=== PATIENT | male | born 1980 | race Caucasian/White ===

== ENCOUNTER 2023-09-04 16:54 | Emergency (ER) | payer SELFPAY | END 2023-09-04 17:19 | LOC: MW.ED 16:54 | DX: Z02.89 Encounter for other administrative examinations (principal) | CPT/HCPCS: 99282; 99283 ==

== ENCOUNTER 2024-02-23 19:56 | Inpatient (IN) | payer MEDICAID ==
[2024-02-23] MEDS ORDERED: Sodium Chloride 0.9% 20 ML SDV IV PRN (20:10)
[2024-02-23] MEDS: Sodium Chloride 0.9% 1,000 ML IV ONE (20:17)
[2024-02-23] MEDS: Sodium Chloride 0.9% 2.5 ML Syringe FLUSH PRN (20:18)
[2024-02-23] MEDS: Diphtheria,Pertussis(Acell),Tetanus Vaccine 0.5 ML Syringe IM ONE (20:18)
[2024-02-23] MEDS: Sodium Chloride 0.9% 10 ML Syringe FLUSH PRN (20:18)
[2024-02-23 20:26] LABS: HEMATOCRIT 42.7 % (42.0-52.0); HEMOGLOBIN 14.7 g/dL (14.0-18.0); MEAN CORPUSCULAR HEMOGLOBIN 31.1 pg (28.0-32.0); MEAN CORPUSCULAR HGB CONC 34.4 g/dL (32.0-36.0); MEAN CORPUSCULAR VOLUME 90.3 fL (83.0-99.0); MEAN PLATELET VOLUME 9.4 fL (9.4-12.4); PLATELET COUNT,PLT 247 K/uL (150-400); RED BLOOD CELL COUNT 4.73 M/uL (4.52-5.90)
[2024-02-23 20:49] LABS: LYMPHOCYTES ABSOLUTE MAN 1.75 K/uL (1.00-4.80); LYMPHOCYTES PERCENT MAN 9 % (24-44); MONOCYTES ABSOLUTE MAN 1.55 K/uL (0.00-0.80); MONOCYTES PERCENT MAN 8 % (0-8); SEG NEUTROPHILS PERCENT MAN 83 % (41-71)
[2024-02-23 20:50] LABS: A/G RATIO 0.8 (0.9-1.6); ALBUMIN 3.2 g/dL (3.4-5.0); BILIRUBIN TOTAL 0.4 mg/dL (0.2-1.0); CALCIUM 9.6 mg/dL (8.5-10.1); CARBON DIOXIDE,CO2 27.9 mmol/L (21.0-32.0); CREATININE 1.2 mg/dL (0.8-1.3); EST CRCL DRUG DOSING (CG) 84.54 mL/min; POTASSIUM,K 3.7 mmol/L (3.5-5.1); PROTEIN TOTAL,TP 7.4 g/dL (6.4-8.2)
[2024-02-23 21:02] LABS: C-REACTIVE PROTEIN 27.26 mg/dL (<0.3)
[2024-02-23] MEDS: Iopamidol 755 MG/ML 500 ML Multipack Bottle IVPUSH ONE (21:43)
[2024-02-23] MEDS: cefTRIAXone 2 GM in Sodium Chloride 0.9% 50 ML IV ONE (22:13)
[2024-02-23] MEDS: LORazepam 2 MG/ML SDV IVPUSH ONE (23:02)
[2024-02-23] MEDS: Ondansetron 4 MG/2 ML SDV IVPUSH ONE (23:02)
[2024-02-23] MEDS: Doxycycline 100 MG in Sodium Chloride 0.9% 100 ML IV SCH (23:05)
[2024-02-23] MEDS ORDERED: Docusate Sodium 100 MG Cap PO PRN (23:18)
[2024-02-23] MEDS ORDERED: Albuterol/Ipratropium 3.0-0.5 MG/3 ML Neb Soln NEB PRN (23:18)
[2024-02-23] MEDS ORDERED: Acetaminophen 325 MG Tab PO PRN (23:18)
[2024-02-23] MEDS ORDERED: Ondansetron 4 MG/2 ML SDV IVPUSH PRN (23:18)
[2024-02-23] MEDS ORDERED: Melatonin 3 MG Tab PO PRN (23:18)
[2024-02-23] MEDS ORDERED: Acetaminophen 650 MG Supp RECTAL PRN (23:18)
[2024-02-23] MEDS ORDERED: Sodium Chloride 0.9% 1,000 ML IV SCH (23:30)
[2024-02-24] MEDS: oxyCODONE 5 MG Tab PO PRN (00:36)
[2024-02-24] MEDS: Sodium Chloride 0.9% 1,000 ML IV ONE (00:55)
[2024-02-24] MEDS: VANCOmycin 1.5 GM/300 ML 300 ML IV ONE ×2 (02:15→03:05)
[2024-02-24] MEDS: Piperacillin/Tazobactam 4.5 GM in Sodium Chloride 0.9% 100 ML IV SCH ×2 (03:05→04:28)
[2024-02-24] MEDS: Sodium Chloride 0.9% 1,000 ML IV SCH (04:30)
[2024-02-24 06:11] LABS: BASOPHILS ABSOLUTE AUTO 0.04 K/uL (0.00-0.20); BASOPHILS PERCENT AUTO 0.2 % (0.0-1.0); EOSINOPHILS ABSOLUTE AUTO 0.12 K/uL (0.00-0.45); EOSINOPHILS PERCENT AUTO 0.7 % (0.0-6.0); HEMATOCRIT 38.4 % (42.0-52.0); HEMOGLOBIN 12.9 g/dL (14.0-18.0); IMMATURE GRAN PERCENT AUTO 1.1 % (0.0-0.4); LYMPHOCYTES ABSOLUTE AUTO 1.01 K/uL (1.00-4.80); LYMPHOCYTES PERCENT AUTO 5.7 % (24.0-44.0); MEAN CORPUSCULAR HEMOGLOBIN 30.6 pg (28.0-32.0); MEAN CORPUSCULAR HGB CONC 33.6 g/dL (32.0-36.0); MEAN PLATELET VOLUME 9.9 fL (9.4-12.4); MONOCYTES ABSOLUTE AUTO 1.33 K/uL (0.00-0.80); MONOCYTES PERCENT AUTO 7.5 % (0.0-8.0); NEUTROPHILS ABSOLUTE AUTO 15.03 K/uL (1.80-7.70); NEUTROPHILS PERCENT AUTO 84.8 % (41.0-71.0); PLATELET COUNT,PLT 225 K/uL (150-400); RED BLOOD CELL COUNT 4.22 M/uL (4.52-5.90); WHITE BLOOD CELL COUNT,WBC 17.73 K/uL (3.9-11.3)
[2024-02-24 06:37] LABS: A/G RATIO 0.7 (0.9-1.6); ALBUMIN 2.6 g/dL (3.4-5.0); BILIRUBIN TOTAL 0.5 mg/dL (0.2-1.0); CALCIUM 8.3 mg/dL (8.5-10.1); CARBON DIOXIDE,CO2 25.9 mmol/L (21.0-32.0); CREATININE 0.9 mg/dL (0.8-1.3); EST CRCL DRUG DOSING (CG) 112.72 mL/min; MAGNESIUM 1.7 mg/dL (1.8-2.4); POTASSIUM,K 3.5 mmol/L (3.5-5.1); PROTEIN TOTAL,TP 6.2 g/dL (6.4-8.2)
[2024-02-24] MEDS ORDERED: fentaNYL 250 MCG/5 ML SDV ONE (07:48)
[2024-02-24] MEDS ORDERED: Propofol 200 MG/20 ML SDV ONE (07:48)
[2024-02-24] MEDS ORDERED: Midazolam 1 MG/ML 2 ML SDV ONE (07:55)
[2024-02-24] MEDS ORDERED: Water For Injection, Sterile 20 ML ONE (07:56)
[2024-02-24] MEDS ORDERED: dexmedeTOMIDine HCl 200 MCG/2 ML SDV ONE (07:56)
[2024-02-24] MEDS ORDERED: Bupivacaine 0.5% 30 ML SDV ONE (08:08)
[2024-02-24] MEDS ORDERED: Ketamine HCL/NACL, ISO-OSM 50 MG/5 ML Syringe ONE (08:50)
[2024-02-24] MEDS ORDERED: Dexamethasone 4 MG/ML 5 ML MDV ONE (09:08)
[2024-02-24] MEDS ORDERED: Ondansetron 4 MG/2 ML SDV ONE (09:08)
[2024-02-24] MEDS ORDERED: HYDROmorphone 2 MG/ML Syringe ONE ×2 (09:14→10:07)
[2024-02-24] MEDS ORDERED: Magnesium Sulfate (4.06 MEQ/ML) 5 GM/10 ML SDV ONE (09:17)
[2024-02-24] MEDS: cefTRIAXone 2 GM in Sodium Chloride 0.9% 50 ML IV ONE (09:37)
[2024-02-24] MEDS ORDERED: Ketorolac 30 MG/ML SDV IVPUSH ONE (10:07)
[2024-02-24 10:36] LABS: HEMOGLOBIN A1C 5.9 %
[2024-02-24] MEDS: Polyethylene Glycol 3350 Powder 17 GM Packet PO SCH (11:50)
[2024-02-24] MEDS: VANCOmycin 1.5 GM/300 ML 300 ML IV SCH (15:31)
== END 2024-02-24 14:40 | disposition left against medical advice (07) | DRG 580 ==
LOC: MW.ED 19:56 → MW.MS 23:18
PROVIDERS: ADMIT Family Medicine; ATTEND Family Medicine
PROC: 0LQS0ZZ Repair Right Ankle Tendon, Open Approach (ICD-10-PCS; 2024-02-24)
PROC: 0LBS0ZZ Excision of Right Ankle Tendon, Open Approach (ICD-10-PCS; principal; 2024-02-24 09:00)
DX: L03.115 Cellulitis of right lower limb (principal); S86.021A Laceration of right Achilles tendon, initial encounter; M65.071 Abscess of tendon sheath, right ankle and foot; F32.A Depression, unspecified; F17.210 Nicotine dependence, cigarettes, uncomplicated; H54.3 Unqualified visual loss, both eyes
CPT/HCPCS: 00938; 01472; 36415; 73701-26-RT; 73701-RT; 80053; 80202; 82947; 83036; 83605; 83735; 85025; 85652; 86140; 87040; 87070; 87075; 87077; 87186; 87205; 93005; 93010; 93971-26-RT; 93971-RT; 96361; 96365; 96375; 99222; 99238; 99284-25; 99285; A9270-GY; J0131; J0665; J0696; J1100; J1170; J1885; J2060; J2250; J2405; J2543; J2704; J3010; J3372; J3475; J3490; J7030; Q9967

== ENCOUNTER 2024-04-10 12:56 | Inpatient (IN) | payer MEDICAID ==
[2024-04-10] MEDS: Ondansetron 4 MG/2 ML SDV IVPUSH STA (14:55)
[2024-04-10] MEDS: Morphine 4 MG/ML Syringe IVPUSH STA (14:55)
[2024-04-10] MEDS: cefTRIAXone 2 GM in Sodium Chloride 0.9% 50 ML IV STA (14:55)
[2024-04-10 15:05] LABS: BASOPHILS ABSOLUTE AUTO 0.07 K/uL (0.00-0.20); BASOPHILS PERCENT AUTO 0.7 % (0.0-1.0); EOSINOPHILS ABSOLUTE AUTO 0.47 K/uL (0.00-0.45); EOSINOPHILS PERCENT AUTO 4.6 % (0.0-6.0); HEMATOCRIT 41.6 % (42.0-52.0); HEMOGLOBIN 14.2 g/dL (14.0-18.0); IMMATURE GRAN ABSOLUTE AUTO 0.28 K/uL (0.00-0.05); IMMATURE GRAN PERCENT AUTO 2.7 % (0.0-0.4); LYMPHOCYTES ABSOLUTE AUTO 2.25 K/uL (1.00-4.80); LYMPHOCYTES PERCENT AUTO 22.1 % (24.0-44.0); MEAN CORPUSCULAR HEMOGLOBIN 30.4 pg (28.0-32.0); MEAN CORPUSCULAR HGB CONC 34.1 g/dL (32.0-36.0); MEAN CORPUSCULAR VOLUME 89.1 fL (83.0-99.0); MEAN PLATELET VOLUME 9.3 fL (9.4-12.4); MONOCYTES ABSOLUTE AUTO 1.12 K/uL (0.00-0.80); NEUTROPHILS PERCENT AUTO 58.9 % (41.0-71.0); PLATELET COUNT,PLT 404 K/uL (150-400); RED BLOOD CELL COUNT 4.67 M/uL (4.52-5.90); WHITE BLOOD CELL COUNT,WBC 10.19 K/uL (3.9-11.3)
[2024-04-10 15:31] LABS: A/G RATIO 0.7 (0.9-1.6); ALBUMIN 3.3 g/dL (3.4-5.0); BILIRUBIN TOTAL 0.3 mg/dL (0.2-1.0); CALCIUM 9.1 mg/dL (8.5-10.1); CARBON DIOXIDE,CO2 29.1 mmol/L (21.0-32.0); EST CRCL DRUG DOSING (CG) 100.4 mL/min; POTASSIUM,K 3.6 mmol/L (3.5-5.1); PROTEIN TOTAL,TP 8.3 g/dL (6.4-8.2)
[2024-04-10] MEDS: VANCOmycin 1.75 GM/350 ML 1.75 GM in Premix Bag 1 BAG IV ONE (15:41)
[2024-04-10] MEDS: Iopamidol 755 MG/ML 500 ML Multipack Bottle IVPUSH STA (16:44)
[2024-04-10] MEDS ORDERED: Naloxone 0.4 MG/ML SDV IVPUSH PRN (18:19)
[2024-04-10 18:35] LABS: LACTIC ACID 0.7 mmol/L (0.4-2.0)
[2024-04-10] MEDS: Nicotine 14 MG/24 Hr Patch TRDERM SCH (21:32)
[2024-04-10] MEDS: Morphine 2 MG/ML SYRINGE IVPUSH PRN (21:32)
[2024-04-11 00:13] LABS: APPEARANCE,URINE CLEAR; BILIRUBIN,URINE NEGATIVE (NEGATIVE); COLOR,URINE YELLOW; GLUCOSE,URINE NEGATIVE (NEGATIVE); KETONES,URINE NEGATIVE (NEGATIVE); LEUKOCYTE ESTERASE,URINE NEGATIVE (NEGATIVE); NITRITE,URINE NEGATIVE (NEGATIVE); OCCULT BLOOD,URINE NEGATIVE (NEGATIVE); PROTEIN,URINE NEGATIVE (NEGATIVE); UROBILINOGEN,URINE 0.2 EU/dL (<2.0)
[2024-04-11 06:45] LABS: BASOPHILS ABSOLUTE AUTO 0.06 K/uL (0.00-0.20); BASOPHILS PERCENT AUTO 0.7 % (0.0-1.0); EOSINOPHILS ABSOLUTE AUTO 0.43 K/uL (0.00-0.45); EOSINOPHILS PERCENT AUTO 5.3 % (0.0-6.0); HEMATOCRIT 38.8 % (42.0-52.0); HEMOGLOBIN 12.9 g/dL (14.0-18.0); IMMATURE GRAN ABSOLUTE AUTO 0.24 K/uL (0.00-0.05); LYMPHOCYTES ABSOLUTE AUTO 1.64 K/uL (1.00-4.80); LYMPHOCYTES PERCENT AUTO 20.4 % (24.0-44.0); MEAN CORPUSCULAR HEMOGLOBIN 30.1 pg (28.0-32.0); MEAN CORPUSCULAR HGB CONC 33.2 g/dL (32.0-36.0); MEAN CORPUSCULAR VOLUME 90.4 fL (83.0-99.0); MONOCYTES ABSOLUTE AUTO 0.77 K/uL (0.00-0.80); MONOCYTES PERCENT AUTO 9.6 % (0.0-8.0); NEUTROPHILS ABSOLUTE AUTO 4.91 K/uL (1.80-7.70); PLATELET COUNT,PLT 370 K/uL (150-400); RED BLOOD CELL COUNT 4.29 M/uL (4.52-5.90); WHITE BLOOD CELL COUNT,WBC 8.05 K/uL (3.9-11.3)
[2024-04-11 07:07] LABS: A/G RATIO 0.6 (0.9-1.6); ALBUMIN 2.7 g/dL (3.4-5.0); BILIRUBIN TOTAL 0.4 mg/dL (0.2-1.0); CALCIUM 8.7 mg/dL (8.5-10.1); CARBON DIOXIDE,CO2 29.2 mmol/L (21.0-32.0); CREATININE 1.1 mg/dL (0.8-1.3); EST CRCL DRUG DOSING (CG) 91.27 mL/min; MAGNESIUM 2.1 mg/dL (1.8-2.4); POTASSIUM,K 4.1 mmol/L (3.5-5.1); PROTEIN TOTAL,TP 6.9 g/dL (6.4-8.2)
[2024-04-11] MEDS ORDERED: Albuterol 0.083% 2.5 MG/3 ML Neb Soln NEB PRN (09:33)
[2024-04-11] MEDS ORDERED: droPERidol 5 MG/2 ML SDV IVPUSH PRN (09:33)
[2024-04-11] MEDS ORDERED: Naloxone 0.4 MG/ML SDV IVPUSH PRN (09:33)
[2024-04-11] MEDS ORDERED: Phenylephrine HCl In 0.9% NaCl 1 MG/10 ML Syringe IVPUSH PRN (09:33)
[2024-04-11] MEDS ORDERED: fentaNYL 50 MCG/ML SDV IVPUSH PRN (09:33)
[2024-04-11] MEDS ORDERED: Metoclopramide 10 MG/2 ML SDV IVPUSH PRN (09:33)
[2024-04-11] MEDS ORDERED: Ondansetron 4 MG/2 ML SDV IVPUSH PRN (09:33)
[2024-04-11] MEDS ORDERED: Morphine 2 MG/ML SYRINGE IVPUSH PRN (09:33)
[2024-04-11] MEDS ORDERED: propofoL 100 ML ONE (10:54)
[2024-04-11] MEDS ORDERED: Sugammadex Sodium 200 MG/2 ML VIAL IV ONE (11:04)
[2024-04-11] MEDS ORDERED: Lidocaine 2% 5 ML SDV ONE (11:04)
[2024-04-11] MEDS ORDERED: Rocuronium Bromide 50 MG/5 ML Syringe ONE ×2 (11:04→11:21)
[2024-04-11] MEDS ORDERED: fentaNYL 100 MCG/2 ML SDV ONE (11:04)
[2024-04-11] MEDS ORDERED: Morphine 10 MG/ML SDV ONE (11:04)
[2024-04-11] MEDS ORDERED: Ondansetron 4 MG/2 ML SDV ONE (11:04)
[2024-04-11] MEDS ORDERED: Ketorolac 30 MG/ML SDV ONE (11:04)
[2024-04-11] MEDS ORDERED: Bupivacaine 0.5% 30 ML SDV ONE (13:41)
[2024-04-11] MEDS ORDERED: HYDROmorphone 2 MG/ML Syringe ONE (14:57)
[2024-04-11] MEDS: HYDROmorphone 1 MG/ML Syringe IVPUSH PRN (15:17)
[2024-04-11] MEDS: cefTRIAXone 2 GM in Sodium Chloride 0.9% 50 ML IV SCH (15:51)
[2024-04-11] MEDS: Enoxaparin 40 MG/0.4 ML Syringe SUBCUT SCH (17:43)
[2024-04-11] MEDS: oxyCODONE 5 MG Tab PO PRN (19:37)
[2024-04-12 06:42] LABS: BASOPHILS ABSOLUTE AUTO 0.08 K/uL (0.00-0.20); EOSINOPHILS ABSOLUTE AUTO 0.54 K/uL (0.00-0.45); EOSINOPHILS PERCENT AUTO 6.6 % (0.0-6.0); HEMATOCRIT 36.4 % (42.0-52.0); HEMOGLOBIN 12.2 g/dL (14.0-18.0); IMMATURE GRAN ABSOLUTE AUTO 0.27 K/uL (0.00-0.05); IMMATURE GRAN PERCENT AUTO 3.3 % (0.0-0.4); LYMPHOCYTES PERCENT AUTO 20.9 % (24.0-44.0); MEAN CORPUSCULAR HEMOGLOBIN 30.2 pg (28.0-32.0); MEAN CORPUSCULAR HGB CONC 33.5 g/dL (32.0-36.0); MEAN CORPUSCULAR VOLUME 90.1 fL (83.0-99.0); MEAN PLATELET VOLUME 9.1 fL (9.4-12.4); MONOCYTES ABSOLUTE AUTO 0.66 K/uL (0.00-0.80); MONOCYTES PERCENT AUTO 8.1 % (0.0-8.0); NEUTROPHILS ABSOLUTE AUTO 4.88 K/uL (1.80-7.70); NEUTROPHILS PERCENT AUTO 60.1 % (41.0-71.0); PLATELET COUNT,PLT 390 K/uL (150-400); RED BLOOD CELL COUNT 4.04 M/uL (4.52-5.90); WHITE BLOOD CELL COUNT,WBC 8.13 K/uL (3.9-11.3)
[2024-04-12 07:05] LABS: A/G RATIO 0.6 (0.9-1.6); ALBUMIN 2.5 g/dL (3.4-5.0); BILIRUBIN TOTAL 0.2 mg/dL (0.2-1.0); CALCIUM 8.4 mg/dL (8.5-10.1); CARBON DIOXIDE,CO2 28.8 mmol/L (21.0-32.0); EST CRCL DRUG DOSING (CG) 100.4 mL/min; POTASSIUM,K 3.9 mmol/L (3.5-5.1); PROTEIN TOTAL,TP 6.6 g/dL (6.4-8.2)
[2024-04-13 07:18] LABS: BASOPHILS ABSOLUTE AUTO 0.07 K/uL (0.00-0.20); BASOPHILS PERCENT AUTO 0.9 % (0.0-1.0); EOSINOPHILS ABSOLUTE AUTO 0.43 K/uL (0.00-0.45); EOSINOPHILS PERCENT AUTO 5.5 % (0.0-6.0); HEMATOCRIT 37.8 % (42.0-52.0); HEMOGLOBIN 12.9 g/dL (14.0-18.0); IMMATURE GRAN ABSOLUTE AUTO 0.26 K/uL (0.00-0.05); IMMATURE GRAN PERCENT AUTO 3.4 % (0.0-0.4); LYMPHOCYTES ABSOLUTE AUTO 2.25 K/uL (1.00-4.80); MEAN CORPUSCULAR HEMOGLOBIN 30.1 pg (28.0-32.0); MEAN CORPUSCULAR HGB CONC 34.1 g/dL (32.0-36.0); MEAN CORPUSCULAR VOLUME 88.3 fL (83.0-99.0); MEAN PLATELET VOLUME 8.8 fL (9.4-12.4); MONOCYTES ABSOLUTE AUTO 0.56 K/uL (0.00-0.80); MONOCYTES PERCENT AUTO 7.2 % (0.0-8.0); NEUTROPHILS ABSOLUTE AUTO 4.19 K/uL (1.80-7.70); PLATELET COUNT,PLT 411 K/uL (150-400); RED BLOOD CELL COUNT 4.28 M/uL (4.52-5.90); WHITE BLOOD CELL COUNT,WBC 7.76 K/uL (3.9-11.3)
[2024-04-13 07:52] LABS: A/G RATIO 0.6 (0.9-1.6); ALBUMIN 2.7 g/dL (3.4-5.0); BILIRUBIN TOTAL 0.2 mg/dL (0.2-1.0); CALCIUM 8.7 mg/dL (8.5-10.1); CARBON DIOXIDE,CO2 28.4 mmol/L (21.0-32.0); CREATININE 0.9 mg/dL (0.8-1.3); EST CRCL DRUG DOSING (CG) 111.56 mL/min; POTASSIUM,K 3.5 mmol/L (3.5-5.1); PROTEIN TOTAL,TP 7.2 g/dL (6.4-8.2)
[2024-04-14 07:08] LABS: EOSINOPHILS PERCENT AUTO 4.1 % (0.0-6.0); HEMATOCRIT 40.3 % (42.0-52.0); HEMOGLOBIN 13.8 g/dL (14.0-18.0); IMMATURE GRAN ABSOLUTE AUTO 0.34 K/uL (0.00-0.05); IMMATURE GRAN PERCENT AUTO 3.5 % (0.0-0.4); LYMPHOCYTES ABSOLUTE AUTO 2.34 K/uL (1.00-4.80); LYMPHOCYTES PERCENT AUTO 24.1 % (24.0-44.0); MEAN CORPUSCULAR HEMOGLOBIN 30.1 pg (28.0-32.0); MEAN CORPUSCULAR HGB CONC 34.2 g/dL (32.0-36.0); MEAN PLATELET VOLUME 8.7 fL (9.4-12.4); MONOCYTES ABSOLUTE AUTO 0.69 K/uL (0.00-0.80); MONOCYTES PERCENT AUTO 7.1 % (0.0-8.0); NEUTROPHILS ABSOLUTE AUTO 5.82 K/uL (1.80-7.70); NEUTROPHILS PERCENT AUTO 60.2 % (41.0-71.0); PLATELET COUNT,PLT 435 K/uL (150-400); RED BLOOD CELL COUNT 4.58 M/uL (4.52-5.90); WHITE BLOOD CELL COUNT,WBC 9.69 K/uL (3.9-11.3)
[2024-04-14 07:31] LABS: CALCIUM 9.1 mg/dL (8.5-10.1); CARBON DIOXIDE,CO2 27.3 mmol/L (21.0-32.0); EST CRCL DRUG DOSING (CG) 100.4 mL/min; POTASSIUM,K 3.6 mmol/L (3.5-5.1)
[2024-04-14] MEDS ORDERED: Rocuronium Bromide 50 MG/5 ML Syringe IVPUSH ONE (09:47)
[2024-04-14] MEDS ORDERED: Sugammadex Sodium 200 MG/2 ML VIAL IV ONE (09:47)
[2024-04-14] MEDS ORDERED: Naloxone 0.4 MG/ML SDV IVPUSH PRN (10:20)
[2024-04-14] MEDS ORDERED: Metoclopramide 10 MG/2 ML SDV IVPUSH PRN (10:20)
[2024-04-14] MEDS ORDERED: Morphine 2 MG/ML SYRINGE IVPUSH PRN (10:20)
[2024-04-14] MEDS ORDERED: fentaNYL 50 MCG/ML SDV IVPUSH PRN (10:20)
[2024-04-14] MEDS ORDERED: Albuterol 0.083% 2.5 MG/3 ML Neb Soln NEB PRN (10:20)
[2024-04-14] MEDS ORDERED: Phenylephrine HCl In 0.9% NaCl 1 MG/10 ML Syringe IVPUSH PRN (10:20)
[2024-04-14] MEDS ORDERED: Ondansetron 4 MG/2 ML SDV IVPUSH PRN (10:20)
[2024-04-14] MEDS ORDERED: droPERidol 5 MG/2 ML SDV IVPUSH PRN (10:20)
[2024-04-14] MEDS ORDERED: Bupivacaine 0.5%/EPINEPHrine 1:200,000 30 ML SDV ONE (10:31)
[2024-04-14] MEDS ORDERED: Bupivacaine 0.5% 30 ML SDV ONE (10:31)
[2024-04-14] MEDS ORDERED: fentaNYL 250 MCG/5 ML SDV ONE (10:32)
[2024-04-14] MEDS ORDERED: Propofol 200 MG/20 ML SDV ONE (10:32)
[2024-04-14] MEDS ORDERED: Ketorolac 30 MG/ML SDV ONE (11:15)
[2024-04-14] MEDS: HYDROmorphone 1 MG/ML Syringe IVPUSH PRN (12:18)
[2024-04-14] MEDS: Cefepime 2 GM in Sodium Chloride 0.9% 50 ML IV SCH (14:02)
[2024-04-16 05:30] LABS: BASOPHILS ABSOLUTE AUTO 0.14 K/uL (0.00-0.20); BASOPHILS PERCENT AUTO 1.4 % (0.0-1.0); EOSINOPHILS ABSOLUTE AUTO 0.45 K/uL (0.00-0.45); EOSINOPHILS PERCENT AUTO 4.4 % (0.0-6.0); HEMOGLOBIN 13.2 g/dL (14.0-18.0); IMMATURE GRAN PERCENT AUTO 4.9 % (0.0-0.4); LYMPHOCYTES ABSOLUTE AUTO 2.38 K/uL (1.00-4.80); LYMPHOCYTES PERCENT AUTO 23.4 % (24.0-44.0); MEAN CORPUSCULAR HEMOGLOBIN 29.9 pg (28.0-32.0); MEAN CORPUSCULAR HGB CONC 33.8 g/dL (32.0-36.0); MEAN CORPUSCULAR VOLUME 88.4 fL (83.0-99.0); MEAN PLATELET VOLUME 9.2 fL (9.4-12.4); MONOCYTES ABSOLUTE AUTO 0.73 K/uL (0.00-0.80); MONOCYTES PERCENT AUTO 7.2 % (0.0-8.0); NEUTROPHILS ABSOLUTE AUTO 5.99 K/uL (1.80-7.70); NEUTROPHILS PERCENT AUTO 58.7 % (41.0-71.0); PLATELET COUNT,PLT 408 K/uL (150-400); RED BLOOD CELL COUNT 4.41 M/uL (4.52-5.90); WHITE BLOOD CELL COUNT,WBC 10.19 K/uL (3.9-11.3)
[2024-04-16 06:00] LABS: A/G RATIO 0.6 (0.9-1.6); ALBUMIN 2.9 g/dL (3.4-5.0); BILIRUBIN TOTAL 0.3 mg/dL (0.2-1.0); CALCIUM 9.5 mg/dL (8.5-10.1); CARBON DIOXIDE,CO2 27.9 mmol/L (21.0-32.0); EST CRCL DRUG DOSING (CG) 100.4 mL/min; PROTEIN TOTAL,TP 7.5 g/dL (6.4-8.2)
[2024-04-16] MEDS ORDERED: Metoclopramide 10 MG/2 ML SDV IVPUSH PRN (07:23)
[2024-04-16] MEDS ORDERED: Phenylephrine HCl In 0.9% NaCl 1 MG/10 ML Syringe IVPUSH PRN (07:23)
[2024-04-16] MEDS ORDERED: Ondansetron 4 MG/2 ML SDV IVPUSH PRN (07:23)
[2024-04-16] MEDS ORDERED: Morphine 2 MG/ML SYRINGE IVPUSH PRN (07:23)
[2024-04-16] MEDS ORDERED: Naloxone 0.4 MG/ML SDV IVPUSH PRN (07:23)
[2024-04-16] MEDS ORDERED: fentaNYL 50 MCG/ML SDV IVPUSH PRN (07:23)
[2024-04-16] MEDS ORDERED: droPERidol 5 MG/2 ML SDV IVPUSH PRN (07:23)
[2024-04-16] MEDS ORDERED: HYDROmorphone 1 MG/ML Syringe IVPUSH PRN (07:23)
[2024-04-16] MEDS ORDERED: Albuterol 0.083% 2.5 MG/3 ML Neb Soln NEB PRN (07:23)
[2024-04-16] MEDS ORDERED: Rocuronium Bromide 50 MG/5 ML Syringe ONE ×2 (09:57→09:59)
[2024-04-16] MEDS ORDERED: Propofol 200 MG/20 ML SDV ONE (09:57)
[2024-04-16] MEDS ORDERED: fentaNYL 250 MCG/5 ML SDV ONE (09:57)
[2024-04-16] MEDS ORDERED: Lidocaine 2% 11 ML Jelly Filled Syringe ONE (11:25)
[2024-04-16] MEDS ORDERED: Ondansetron 4 MG/2 ML SDV ONE (12:05)
[2024-04-16] MEDS ORDERED: Sugammadex Sodium 200 MG/2 ML VIAL IV ONE (13:32)
[2024-04-17 06:24] LABS: BASOPHILS ABSOLUTE AUTO 0.11 K/uL (0.00-0.20); EOSINOPHILS ABSOLUTE AUTO 0.41 K/uL (0.00-0.45); EOSINOPHILS PERCENT AUTO 3.8 % (0.0-6.0); HEMATOCRIT 41.4 % (42.0-52.0); HEMOGLOBIN 13.5 g/dL (14.0-18.0); IMMATURE GRAN ABSOLUTE AUTO 0.48 K/uL (0.00-0.05); IMMATURE GRAN PERCENT AUTO 4.4 % (0.0-0.4); LYMPHOCYTES ABSOLUTE AUTO 2.21 K/uL (1.00-4.80); LYMPHOCYTES PERCENT AUTO 20.3 % (24.0-44.0); MEAN CORPUSCULAR HEMOGLOBIN 29.4 pg (28.0-32.0); MEAN CORPUSCULAR HGB CONC 32.6 g/dL (32.0-36.0); MEAN CORPUSCULAR VOLUME 90.2 fL (83.0-99.0); MEAN PLATELET VOLUME 9.2 fL (9.4-12.4); MONOCYTES ABSOLUTE AUTO 0.77 K/uL (0.00-0.80); MONOCYTES PERCENT AUTO 7.1 % (0.0-8.0); NEUTROPHILS PERCENT AUTO 63.4 % (41.0-71.0); PLATELET COUNT,PLT 423 K/uL (150-400); RED BLOOD CELL COUNT 4.59 M/uL (4.52-5.90); WHITE BLOOD CELL COUNT,WBC 10.88 K/uL (3.9-11.3)
[2024-04-17 07:06] LABS: A/G RATIO 0.7 (0.9-1.6); ALBUMIN 3.2 g/dL (3.4-5.0); BILIRUBIN TOTAL 0.3 mg/dL (0.2-1.0); CALCIUM 9.3 mg/dL (8.5-10.1); CARBON DIOXIDE,CO2 30.4 mmol/L (21.0-32.0); EST CRCL DRUG DOSING (CG) 100.4 mL/min; POTASSIUM,K 4.2 mmol/L (3.5-5.1); PROTEIN TOTAL,TP 7.5 g/dL (6.4-8.2)
[2024-04-18 06:02] LABS: HEMATOCRIT 43.5 % (42.0-52.0); HEMOGLOBIN 14.8 g/dL (14.0-18.0); MEAN CORPUSCULAR HEMOGLOBIN 30.6 pg (28.0-32.0); MEAN CORPUSCULAR VOLUME 89.9 fL (83.0-99.0); MEAN PLATELET VOLUME 9.1 fL (9.4-12.4); PLATELET COUNT,PLT 451 K/uL (150-400); RED BLOOD CELL COUNT 4.84 M/uL (4.52-5.90); WHITE BLOOD CELL COUNT,WBC 12.78 K/uL (3.9-11.3)
[2024-04-18 06:40] LABS: A/G RATIO 0.8 (0.9-1.6); ALBUMIN 3.5 g/dL (3.4-5.0); BILIRUBIN TOTAL 0.2 mg/dL (0.2-1.0); CALCIUM 8.9 mg/dL (8.5-10.1); CREATININE 1.1 mg/dL (0.8-1.3); EST CRCL DRUG DOSING (CG) 91.27 mL/min; PROTEIN TOTAL,TP 8.1 g/dL (6.4-8.2)
[2024-04-18 09:38] LABS: BAND ABSOLUTE MAN 0.38; BAND PERCENT MAN 3 %; BASOPHILS ABSOLUTE MAN 0.13 K/uL (0.00-0.20); BASOPHILS PERCENT MAN 1 % (0-1); EOSINOPHILS ABSOLUTE MAN 0.51 K/uL (0.00-0.45); EOSINOPHILS PERCENT MAN 4 % (0-6); LYMPHOCYTES ABSOLUTE MAN 3.45 K/uL (1.00-4.80); LYMPHOCYTES PERCENT MAN 27 % (24-44); MONOCYTES ABSOLUTE MAN 1.28 K/uL (0.00-0.80); MONOCYTES PERCENT MAN 10 % (0-8); SEG NEUTROPHILS PERCENT MAN 54 % (41-71)
[2024-04-18 09:39] LABS: MYELOCYTE ABSOLUTE MAN 0.13; MYELOCYTE PERCENT MAN 1 %
[2024-04-18] MEDS: VANCOmycin 1.5 GM/300 ML 300 ML IV SCH (20:54)
[2024-04-20 07:15] LABS: HEMATOCRIT 41.5 % (42.0-52.0); HEMOGLOBIN 13.8 g/dL (14.0-18.0); MEAN CORPUSCULAR HEMOGLOBIN 29.7 pg (28.0-32.0); MEAN CORPUSCULAR HGB CONC 33.3 g/dL (32.0-36.0); MEAN CORPUSCULAR VOLUME 89.4 fL (83.0-99.0); MEAN PLATELET VOLUME 9.6 fL (9.4-12.4); PLATELET COUNT,PLT 377 K/uL (150-400); RED BLOOD CELL COUNT 4.64 M/uL (4.52-5.90); WHITE BLOOD CELL COUNT,WBC 10.18 K/uL (3.9-11.3)
[2024-04-20 07:38] LABS: CALCIUM 9.7 mg/dL (8.5-10.1); CARBON DIOXIDE,CO2 28.8 mmol/L (21.0-32.0); EST CRCL DRUG DOSING (CG) 100.4 mL/min
[2024-04-20 07:51] LABS: LYMPHOCYTES ABSOLUTE MAN 2.75 K/uL (1.00-4.80); LYMPHOCYTES PERCENT MAN 27 % (24-44); SEG NEUTROPHILS ABSOLUTE MAN 5.19 K/uL (1.80-7.70); SEG NEUTROPHILS PERCENT MAN 51 % (41-71)
[2024-04-20 07:52] LABS: BASOPHILS PERCENT MAN 2 % (0-1); EOSINOPHILS PERCENT MAN 2 % (0-6); MONOCYTES ABSOLUTE MAN 1.83 K/uL (0.00-0.80); MONOCYTES PERCENT MAN 18 % (0-8)
[2024-04-21 05:51] LABS: HEMATOCRIT 41.2 % (42.0-52.0); HEMOGLOBIN 13.9 g/dL (14.0-18.0); MEAN CORPUSCULAR HEMOGLOBIN 30.3 pg (28.0-32.0); MEAN CORPUSCULAR HGB CONC 33.7 g/dL (32.0-36.0); MEAN PLATELET VOLUME 10.6 fL (9.4-12.4); PLATELET COUNT,PLT 304 K/uL (150-400); RED BLOOD CELL COUNT 4.58 M/uL (4.52-5.90); WHITE BLOOD CELL COUNT,WBC 10.12 K/uL (3.9-11.3)
[2024-04-21 06:37] LABS: A/G RATIO 0.9 (0.9-1.6); ALBUMIN 3.6 g/dL (3.4-5.0); BILIRUBIN TOTAL 0.2 mg/dL (0.2-1.0); CALCIUM 9.4 mg/dL (8.5-10.1); CARBON DIOXIDE,CO2 25.9 mmol/L (21.0-32.0); EST CRCL DRUG DOSING (CG) 100.4 mL/min; POTASSIUM,K 4.8 mmol/L (3.5-5.1); PROTEIN TOTAL,TP 7.4 g/dL (6.4-8.2)
[2024-04-21 06:41] LABS: BAND ABSOLUTE MAN 2.02; BASOPHILS PERCENT MAN 2 % (0-1); EOSINOPHILS ABSOLUTE MAN 0.81 K/uL (0.00-0.45); EOSINOPHILS PERCENT MAN 8 % (0-6); LYMPHOCYTES ABSOLUTE MAN 2.02 K/uL (1.00-4.80); LYMPHOCYTES PERCENT MAN 20 % (24-44); MONOCYTES ABSOLUTE MAN 1.62 K/uL (0.00-0.80); MONOCYTES PERCENT MAN 16 % (0-8); SEG NEUTROPHILS ABSOLUTE MAN 5.46 K/uL (1.80-7.70); SEG NEUTROPHILS PERCENT MAN 54 % (41-71)
[2024-04-21] MEDS: Piperacillin/Tazobactam 4.5 GM in Sodium Chloride 0.9% 100 ML IV ONE (10:47)
[2024-04-21] MEDS: Piperacillin/Tazobactam 4.5 GM in Sodium Chloride 0.9% 100 ML IV SCH (17:30)
[2024-04-21] MEDS: Calcium Carbonate 500 MG Tab.Chew PO ONE (20:09)
[2024-04-21] MEDS: Pantoprazole 40 MG Tab.CR PO SCH (22:02)
[2024-04-22 05:55] LABS: HEMATOCRIT 40.1 % (42.0-52.0); HEMOGLOBIN 13.6 g/dL (14.0-18.0); MEAN CORPUSCULAR HEMOGLOBIN 30.3 pg (28.0-32.0); MEAN CORPUSCULAR HGB CONC 33.9 g/dL (32.0-36.0); MEAN CORPUSCULAR VOLUME 89.3 fL (83.0-99.0); MEAN PLATELET VOLUME 9.7 fL (9.4-12.4); PLATELET COUNT,PLT 371 K/uL (150-400); RED BLOOD CELL COUNT 4.49 M/uL (4.52-5.90); WHITE BLOOD CELL COUNT,WBC 7.77 K/uL (3.9-11.3)
[2024-04-22 06:28] LABS: A/G RATIO 0.9 (0.9-1.6); ALBUMIN 3.5 g/dL (3.4-5.0); BILIRUBIN TOTAL 0.3 mg/dL (0.2-1.0); CALCIUM 9.5 mg/dL (8.5-10.1); CARBON DIOXIDE,CO2 29.8 mmol/L (21.0-32.0); EST CRCL DRUG DOSING (CG) 100.4 mL/min; PROTEIN TOTAL,TP 7.6 g/dL (6.4-8.2)
[2024-04-22 06:39] LABS: BAND ABSOLUTE MAN 0.08; BAND PERCENT MAN 1 %; EOSINOPHILS ABSOLUTE MAN 0.31 K/uL (0.00-0.45); EOSINOPHILS PERCENT MAN 4 % (0-6); LYMPHOCYTES ABSOLUTE MAN 3.19 K/uL (1.00-4.80); LYMPHOCYTES PERCENT MAN 41 % (24-44); MONOCYTES ABSOLUTE MAN 0.85 K/uL (0.00-0.80); MONOCYTES PERCENT MAN 11 % (0-8); SEG NEUTROPHILS ABSOLUTE MAN 2.56 K/uL (1.80-7.70); SEG NEUTROPHILS PERCENT MAN 33 % (41-71)
[2024-04-22 06:40] LABS: BASOPHILS ABSOLUTE MAN 0.08 K/uL (0.00-0.20); BASOPHILS PERCENT MAN 1 % (0-1); METAMYELOCYTE ABSOLUTE MAN 0.16; METAMYELOCYTE PERCENT MAN 2 %; MYELOCYTE ABSOLUTE MAN 0.54; MYELOCYTE PERCENT MAN 7 %
== END 2024-04-22 21:55 | disposition swing bed (61) | DRG 501 ==
LOC: MW.ED 12:56 → MW.MS 17:47
PROVIDERS: ADMIT Internal Medicine; ATTEND Internal Medicine
PROC: 0K9 Muscles, Drainage (ICD-10-PCS; principal; 2024-04-11 15:30)
PROC: 0KBS0ZZ Excision of Right Lower Leg Muscle, Open Approach (ICD-10-PCS; 2024-04-14)
PROC: 0LBN0ZZ Excision of Right Lower Leg Tendon, Open Approach (ICD-10-PCS; 2024-04-14)
PROC: 0KBS0ZZ Excision of Right Lower Leg Muscle, Open Approach (ICD-10-PCS; 2024-04-16)
DX: M60.061 Infective myositis, right lower leg (principal); I96 Gangrene, not elsewhere classified; L03.115 Cellulitis of right lower limb; H54.7 Unspecified visual loss; F32.A Depression, unspecified; B95.1 Streptococcus, group B, as the cause of diseases classified elsewhere; B96.5 Pseudomonas (aeruginosa) (mallei) (pseudomallei) as the cause of diseases classified elsewhere; Z88.0 Allergy status to penicillin
CPT/HCPCS: 00400; 36415; 73701-26-RT; 73701-RT; 73718-26-RT; 73718-RT; 73721-26-RT; 73721-RT; 80048; 80053; 80202; 81003; 82947; 83605; 83735; 85025; 85652; 86140; 87040; 87070; 87075; 87077; 87147; 87186; 87205; 96365; 96375; 99222; 99231; 99232; 99238; 99284; 99284-25; A9270-GY; J0131; J0665; J0692; J0696; J1171; J1650; J1885; J2270; J2272; J2405; J2543; J2704; J3010; J3371; J3372; J3490; J7050; Q9967